=== PATIENT | female | born 1965 | race Caucasian/White ===

== ENCOUNTER 2018-01-10 09:28 | Day surgery (SDC) | payer BC ==
[2018-01-07 16:48] LABS: BASOPHILS # (AUTO) 0.1 K/uL (0.00-0.22); BASOPHILS % (AUTO) 1.2 % (0.0-2.0); EOSINOPHILS # (AUTO) 0.1 K/uL (0-0.4); EOSINOPHILS % (AUTO) 1.6 % (0.0-4.0); HEMOGLOBIN 13.8 g/dL (12.0-16.0); LYMPHOCYTES # (AUTO) 2.5 K/uL (2.5-16.5); LYMPHOCYTES % (AUTO) 32.1 % (20.5-51.1); MEAN CORPUSCULAR HEMOGLOBIN 29 pg (27-31); MEAN CORPUSCULAR HGB CONC 33 g/dL (33-37); MEAN CORPUSCULAR VOLUME 88.7 fL (80-94); MONOCYTES # (AUTO) 0.6 K/uL (0.8-1.0); MONOCYTES % (AUTO) 7.9 % (1.7-9.3); NEUTROPHILS # (AUTO) 4.4 K/uL (1.8-7.7); NEUTROPHILS % (AUTO) 57.2 % (42.2-75.2); PLATELET COUNT (AUTO) 246 K/uL (140-450); RED BLOOD CELL COUNT(AUTO) 4.73 MIL/uL (4.20-5.40); RED CELL DISTRIBUTION WIDTH 13.5 % (11.6-13.7); WHITE BLOOD COUNT (AUTO) 7.7 K/uL (4.8-10.8)
[2018-01-07 17:28] LABS: ALBUMIN 3.6 g/dL (3.4-5.0); ANION GAP 13.5 (8-16); CARBON DIOXIDE 29.7 mmol/L (21-32); CREATININE 0.7 mg/dL (0.6-1.3); POTASSIUM 4.2 mmol/L (3.5-5.1); TOTAL BILIRUBIN 0.3 mg/dL (0.0-1.0)
[~2018-01-10] VITALS: Ht 157.5 cm; Wt 72.6 kg
[2018-01-10] MEDS ORDERED: CEFAZOLIN SODIUM 1 GM/D5W PM 50 ML IV SCH (11:00)
[2018-01-10] MEDS ORDERED: SEVOFLURANE 250 ML BTL INH ONE (13:25)
[2018-01-10] MEDS ORDERED: DEXAMETHASONE 4 MG/ML VIAL ONE (13:25)
[2018-01-10] MEDS ORDERED: ONDANSETRON 4 MG/2 ML VIAL ONE (13:25)
[2018-01-10] MEDS ORDERED: KETOROLAC 30 MG/ML VIAL ONE (13:25)
[2018-01-10] MEDS ORDERED: PROPOFOL 200 MG/20 ML VIAL IV ONE (13:25)
[2018-01-10] MEDS ORDERED: BUPIVACAINE-MPF/EPI 0.25% 30 ML VIAL INJ ONE (13:29)
[2018-01-10] MEDS ORDERED: MIDAZOLAM 2 MG/2 ML VIAL ONE (13:35)
[2018-01-10] MEDS ORDERED: fentaNYL 0.05 MG/ML VIAL ONE (13:35)
[2018-01-10] MEDS ORDERED: MEPERIDINE 50 MG/ML SYR ONE (13:35)
[2018-01-10] MEDS ORDERED: HYDROmorphone 1 MG/ML AMP IVP PRN ×2 (14:00→14:25)
[2018-01-10] MEDS ORDERED: ONDANSETRON 4 MG/2 ML VIAL IVP PRN (14:00)
[2018-01-10] MEDS ORDERED: diphenhydrAMINE 50 MG/ML VIAL IVP PRN (14:00)
[2018-01-10] MEDS ORDERED: LACTATED RINGERS 1,000 ML IV SCH (14:00)
[2018-01-10] MEDS ORDERED: MEPERIDINE 25 MG/ML SYR IVP PRN (14:00)
[2018-01-10] MEDS ORDERED: ONDANSETRON 4 MG/2 ML VIAL IV PRN (14:25)
[2018-01-10] MEDS ORDERED: MORPHINE SULFATE 2 MG/ML SYR IVP PRN (14:25)
[2018-01-10] MEDS ORDERED: HYDROcodone/APAP 5/325 MG 1 TAB TAB PO PRN (14:25)
[2018-01-10] MEDS ORDERED: MORPHINE SULFATE 4 MG/ML SYR IV PRN (14:25)
== END 2018-01-10 16:45 | disposition home or self-care (01) ==
LOC: MDS 09:28 → MMU 09:29 → MDS 16:45
PROVIDERS: ATTEND Surgery
DX: D24.1 Benign neoplasm of right breast (principal); E78.5 Hyperlipidemia, unspecified; K21.9 Gastro-esophageal reflux disease without esophagitis; F17.210 Nicotine dependence, cigarettes, uncomplicated; Z98.890 Other specified postprocedural states; Z98.51 Tubal ligation status
CPT/HCPCS: 36415; 71045; 76641; 80053; 85025; 88307; J0690; J1100; J1885; J2175; J2250; J2405; J2704; J3010; J3490; J7120; Q0092